=== PATIENT | male | born 1980 | race African-American/Black ===

== ENCOUNTER 2017-07-05 08:21 | Emergency (ER) | payer OTHER ==
[~2017-07-05] VITALS: Ht 170.2 cm; Wt 60.0 kg
[2017-07-05] MEDS ORDERED: METOCLOPRAMIDE 5 MG/ML, 2ML ONE (08:40)
[2017-07-05] MEDS ORDERED: KETOROLAC 30 MG/1 ML ONE (08:40)
[2017-07-05] MEDS ORDERED: DIPHENHYDRAMINE 50 MG/ML, 1ML ONE (08:41)
[2017-07-05] MEDS ORDERED: METOCLOPRAMIDE 5 MG/ML, 2ML IVPush ONE (09:00)
[2017-07-05] MEDS ORDERED: KETOROLAC 30 MG/1 ML IVPush ONE (09:00)
[2017-07-05] MEDS ORDERED: SODIUM CHLORIDE 0.9% 1,000ML IVBOLUS ONE (09:00)
[2017-07-05] MEDS ORDERED: SODIUM CHLORIDE FLUSH 10ML SYR IVF ONE (09:00)
[2017-07-05] MEDS ORDERED: DIPHENHYDRAMINE 50 MG/ML, 1ML IVPush ONE (09:00)
[2017-07-05 09:10] LABS: HEMOGLOBIN 13.4 g/dL (13.7-18.0); WHITE BLOOD COUNT 7.4 x10^3/uL (3.4-10)
[2017-07-05 09:43] LABS: ASPARTATE AMINO TRANSFERASE 49 U/L (15-37); BLOOD UREA NITROGEN 11 mg/dL (7-18)
[2017-07-05] MEDS ORDERED: MORPHINE SULFATE 4 MG/ML, 1ML ONE (10:24)
[2017-07-05] MEDS ORDERED: MORPHINE SULFATE 4 MG/ML, 1ML IVPush ONE (11:00)
[2017-07-05 12:17] VITALS: BP 123/70
[2017-07-06] MEDS ORDERED: HYDR-3240 PO (05:19)
[2017-07-06] MEDS ORDERED: TAMS-11 PO (05:19)
== END 2017-07-05 12:36 | disposition home or self-care (01) ==
LOC: ED 09:04
DX: N20.1 Calculus of ureter (principal); R31.9 Hematuria, unspecified; R11.2 Nausea with vomiting, unspecified; R19.7 Diarrhea, unspecified; F17.200 Nicotine dependence, unspecified, uncomplicated
CPT/HCPCS: 36415; 74176; 80053; 81001; 83690; 85025; 87086; 96361; 96374; 96375; 99285; J1200; J1885; J2765; J7030